=== PATIENT | female | born 1990 | race Caucasian/White ===

== ENCOUNTER 2016-04-03 14:32 | Day surgery (SDC) | payer BC ==
[~2016-04-03] VITALS: Ht 167.6 cm; Wt 57.8 kg
[~2016-04-03 14:32] MED LIST: ADDERALL5 MG PO; ADVIL200 MG PO; BUSPAR10 MG PO; CEFTIN 250250 MG/TAB PO; NORCO 325 MG-51 TAB PO; PRENATAL1 TA1 PO; PRENATAL1 TA2 PO; TETRACYCLI500 MG/CAP; TETRACYCLINE 2250 MG PO; XANAX .25M0.25 MG/TA PO; ZOFRAN4 MG PO
[2016-04-03 15:14] VITALS: BP 122/96; PULSE 75; TEMP 97.5
[2016-04-03] MEDS ORDERED: ALKA-SELTZER HE1 TEF PO (15:23)
[2016-04-03] MEDS ORDERED: NUVARING VAG RING VG (15:25)
[2016-04-03] MEDS ORDERED: LEVBID0.375 MG PO (16:28)
[2016-04-03] MEDS ORDERED: IMODIUM 2MG CAPS2 MG PO (16:29)
[2016-04-03 16:35] VITALS: BP 118/83; PULSE 87; TEMP 97.7
[2016-04-03 16:45] VITALS: BP 121/74; PULSE 97
[2016-04-03 17:00] VITALS: BP 119/79; PULSE 86
[2016-04-03 17:15] VITALS: BP 106/72; PULSE 87
[2016-04-03 17:30] VITALS: BP 129/91; PULSE 82
[2016-04-03] MEDS ORDERED: PRILOSEC 20MG20 MG PO (17:58)
== END 2016-04-03 18:00 | disposition home or self-care (01) ==
LOC: SDCO 14:32
DX: Z12.31 Encounter for screening mammogram for malignant neoplasm of breast (principal); K21.9 Gastro-esophageal reflux disease without esophagitis; R11.2 Nausea with vomiting, unspecified; R19.7 Diarrhea, unspecified; R19.5 Other fecal abnormalities; R10.84 Generalized abdominal pain
CPT/HCPCS: J2250; J2405; J3010; J7030

== ENCOUNTER 2016-04-25 23:07 | Emergency (ER) | payer BC ==
[~2016-04-25] VITALS: Ht 167.6 cm; Wt 56.8 kg
[~2016-04-25 23:07] MED LIST changes: +ALKA-SELTZER HE1 TEF PO; +IMODIUM 2MG CAPS2 MG PO; +LEVBID0.375 MG PO; +NUVARING VAG RING VG; +PRILOSEC 20MG20 MG PO
[2016-04-26 00:36] LABS: BASO % 0.4 % (0.0-2.0); EOS % 0.1 % (0-4.0); GRAN # 7.1 (1.4-6.5); GRAN % 78.4 % (42.2-75.2); HEMATOCRIT 40.4 % (37.0-47.0); HEMOGLOBIN 13.7 g/dl (12.5-16.0); LYMPH # 1.4 (1.2-3.4); LYMPH % 15.8 % (20.0-51.0); MEAN CELL VOLUME 87 fl (80.0-100.0); MEAN CORPUSCULAR HEMOGLOBIN 29 pg (27.0-31.0); MEAN CORPUSCULAR HGB CONC 34 g/dl (33.0-37.0); MEAN PLATELET VOLUME 10.8 fl (7.4-10.4); MONO # 0.5 (0.1-0.6); MONO % 5.1 % (1.7-9.3); PLATELET COUNT 260 K/mm3 (130-400); RED BLOOD COUNT 4.66 M/mm3 (4.10-5.30); REDCELL DISTRIBUTION WIDTH-CV 12.1 % (11.5-14.5)
[2016-04-26 00:47] VITALS: TEMP 99.3
[2016-04-26 00:51] LABS: ADJUSTED CALCIUM 9.3 mg/dL (8.4-10.2); ALBUMIN 4.8 gm/dL (3.5-5.0); BILIRUBIN,TOTAL 0.8 mg/dL (0.0-1.0); C-REACTIVE PROTEIN 2.4 mg/dL (0.0-0.9); CALCIUM 9.9 mg/dL (8.4-10.2); CREATININE, serum 0.83 mg/dL (0.52-1.25); POTASSIUM 3.5 mmol/L (3.4-5.0)
[2016-04-26 01:42] LABS: PH 6 (5-8); SQUAMOUS EPITHELIAL 0-2 /hpf; URINE APPEARANCE Hazy; URINE BACTERIA None Seen /hpf; URINE BILIRUBIN Negative (NEGATIVE); URINE BLOOD Negative (NEGATIVE); URINE COLOR Yellow; URINE GLUCOSE Negative (NEGATIVE); URINE KETONE 2+ (NEGATIVE); URINE RBC 0-2 /hpf; URINE UROBILINOGEN Negative (NEGATIVE); URINE WBC 0-2 /hpf
[2016-04-26] MEDS ORDERED: ZOFRAN ODT4 MG PO (02:12)
[2016-04-26] MEDS ORDERED: NORCO 325 MG-51 TAB PO (02:12)
[2016-04-26 02:18] VITALS: BP 109/68; PULSE 61
== END 2016-04-26 02:19 | disposition home or self-care (01) ==
LOC: COL.ER 23:07
PROVIDERS: Nurse Practitioner
DX: R10.32 Left lower quadrant pain (principal); R19.7 Diarrhea, unspecified; R11.0 Nausea
CPT/HCPCS: J1885; J2405; J2550; J7030; Q9967

== ENCOUNTER 2016-09-13 21:17 | Emergency (ER) | payer BC ==
[~2016-09-13] VITALS: Ht 170.2 cm; Wt 59.1 kg
[~2016-09-13 21:17] MED LIST changes: +ZOFRAN ODT4 MG PO
[2016-09-13 21:19] VITALS: TEMP 98
[2016-09-13] MEDS ORDERED: NORCO 325 MG-51 TAB PO (22:44)
[2016-09-13] MEDS ORDERED: ZOFRAN 4MG T4 MG/TAB PO (22:44)
[2016-09-13 23:10] VITALS: BP 147/91; PULSE 71
== END 2016-09-13 23:18 | disposition home or self-care (01) ==
LOC: COL.ER 21:17
DX: S82.145A Nondisplaced bicondylar fracture of left tibia, initial encounter for closed fracture (principal); F17.210 Nicotine dependence, cigarettes, uncomplicated; F12.90 Cannabis use, unspecified, uncomplicated; M19.90 Unspecified osteoarthritis, unspecified site; Z98.890 Other specified postprocedural states; V89.2XXA Person injured in unspecified motor-vehicle accident, traffic, initial encounter; Y92.818 Other transport vehicle as the place of occurrence of the external cause
CPT/HCPCS: J1885; L1830

== ENCOUNTER 2017-03-02 12:51 | Emergency (ER) | payer BC ==
[~2017-03-02] VITALS: Ht 167.6 cm; Wt 58.0 kg
[~2017-03-02 12:51] MED LIST changes: +ZOFRAN 4MG T4 MG/TAB PO
[2017-03-02 12:54] VITALS: BP 121/77; TEMP 98.3
[2017-03-02] MEDS ORDERED: TRI-SPRINTEC 281 TAB PO (12:57)
[2017-03-02 13:53] LABS: COLLECTION METHOD CLEAN CATCH
[2017-03-02 14:06] LABS: MUCOUS Present /lpf; PH 6 (5-8); SQUAMOUS EPITHELIAL 0-2 /hpf; URINE APPEARANCE Clear; URINE BACTERIA Rare /hpf; URINE BILIRUBIN Negative (NEGATIVE); URINE BLOOD Negative (NEGATIVE); URINE COLOR Yellow; URINE GLUCOSE Negative (NEGATIVE); URINE KETONE 1+ (NEGATIVE); URINE LEUKOCYTE ESTERASE Negative (NEGATIVE); URINE PROTEIN(semi-quant) 2+ (NEGATIVE); URINE RBC 0-2 /hpf; URINE UROBILINOGEN Negative (NEGATIVE); URINE WBC 0-2 /hpf
[2017-03-02 14:12] LABS: BASO # 0.1 (0.0-0.2); BASO % 0.6 % (0.0-2.0); EOS # 0.1 (0.0-0.7); EOS % 0.8 % (0-4.0); GRAN # 6.4 (1.4-6.5); GRAN % 66.1 % (42.2-75.2); HEMOGLOBIN 12.3 g/dl (12.5-16.0); LYMPH # 2.6 (1.2-3.4); LYMPH % 26.3 % (20.0-51.0); MEAN CELL VOLUME 85 fl (80.0-100.0); MEAN CORPUSCULAR HEMOGLOBIN 29 pg (27.0-31.0); MEAN CORPUSCULAR HGB CONC 33 g/dl (33.0-37.0); MEAN PLATELET VOLUME 10.2 fl (7.4-10.4); MONO # 0.6 (0.1-0.6); PLATELET COUNT 283 K/mm3 (130-400); RED BLOOD COUNT 4.32 M/mm3 (4.10-5.30); WHITE BLOOD COUNT 9.7 K/mm3 (4.8-10.8)
[2017-03-02 14:15] LABS: HEMATOCRIT 36.9 % (37.0-47.0)
[2017-03-02 14:30] LABS: ADJUSTED CALCIUM 9.1 mg/dL (8.4-10.2); ALANINE AMINOTRANSFERASE 35 U/L (9-52); ALBUMIN 4.7 gm/dL (3.5-5.0); ALKALINE PHOSPHATASE 82 U/L (50-136); ANION GAP 10 mmol/L (7-16); BILIRUBIN,TOTAL 0.7 mg/dL (0.0-1.0); BLOOD UREA NITROGEN 13 mg/dL (7-17); CALCIUM 9.7 mg/dL (8.4-10.2); CARBON DIOXIDE 23 mmol/L (22-30); CHLORIDE 105 mmol/L (98-107); CREATININE, serum 0.66 mg/dL (0.52-1.25); GLUCOSE 82 mg/dL (74-106); LIPASE 84 U/L (23-300); POTASSIUM 3.8 mmol/L (3.4-5.0); SODIUM 139 mmol/L (137-145); TOTAL PROTEIN 8.1 gm/dL (6.4-8.2)
[2017-03-02 14:43] LABS: C-REACTIVE PROTEIN < 0.5 mg/dL (0.0-0.9)
[2017-03-02 17:18] LABS: CHLAMYDIA/TRACH by PCR Female NOT DETECTED; NEISSERIA GON by PCR Female NOT DETECTED
[2017-03-02] MEDS ORDERED: ZOFRAN ODT4 MG PO (17:48)
[2017-03-02] MEDS ORDERED: NORCO 325 MG-51 TAB PO (17:48)
[2017-03-02 18:01] VITALS: PULSE 78
== END 2017-03-02 18:00 | disposition home or self-care (01) ==
LOC: COL.ER 12:51
PROVIDERS: Emergency Medicine
DX: R10.2 Pelvic and perineal pain (principal)
CPT/HCPCS: J1885; J7030

== ENCOUNTER → 2017-05-01 | Outpatient (REF) ==
[~2017-05-01] MED LIST changes: +IBU600 MG PO; +PERCOCET 325 MG1 TA2 PO; +TRI-SPRINTEC 281 TAB PO
[2017-05-01 10:41] LABS: BASO % 0.1 % (0.0-2.0); LYMPH # 2.7 (1.2-3.4); LYMPH % 12.8 % (20.0-51.0); MEAN CELL VOLUME 87 fl (80.0-100.0); MEAN CORPUSCULAR HGB CONC 33 g/dl (33.0-37.0); MEAN PLATELET VOLUME 10.3 fl (7.4-10.4); MONO # 1.4 (0.1-0.6); MONO % 6.6 % (1.7-9.3); PLATELET COUNT 281 K/mm3 (130-400); RED BLOOD COUNT 3.89 M/mm3 (4.10-5.30); REDCELL DISTRIBUTION WIDTH-CV 14.8 % (11.5-14.5)
[2017-05-01 10:49] LABS: ALANINE AMINOTRANSFERASE 24 U/L (9-52); ALBUMIN 4.1 gm/dL (3.5-5.0); ALKALINE PHOSPHATASE 55 U/L (50-136); ANION GAP 10 mmol/L (7-16); AST,SGOT 19 U/L (15-37); BILIRUBIN,TOTAL 0.4 mg/dL (0.0-1.0); BLOOD UREA NITROGEN 10 mg/dL (7-17); CALCIUM 9.4 mg/dL (8.4-10.2); CARBON DIOXIDE 24 mmol/L (22-30); CHLORIDE 107 mmol/L (98-107); CREATININE, serum 0.73 mg/dL (0.52-1.25); GLUCOSE 111 mg/dL (74-106); POTASSIUM 3.5 mmol/L (3.4-5.0); SODIUM 141 mmol/L (137-145); TOTAL PROTEIN 7.2 gm/dL (6.4-8.2)
[2017-05-01 11:04] LABS: HEMATOCRIT 33.8 % (37.0-47.0); HEMOGLOBIN 11.2 g/dl (12.5-16.0); MEAN CORPUSCULAR HEMOGLOBIN 29 pg (27.0-31.0); TROPONIN-I < 0.012 ng/mL (0.000-0.034)
== END ==
LOC: ZMSC 10:30
PROVIDERS: Obstetrics & Gynecology
DX: Z01.89 Encounter for other specified special examinations (principal)

== ENCOUNTER 2017-05-04 16:32 | Emergency (ER) | payer BC ==
[~2017-05-04] VITALS: Ht 167.6 cm; Wt 55.9 kg
[~2017-05-04 16:32] MED LIST changes: -IBU600 MG PO; -PERCOCET 325 MG1 TA2 PO
[2017-05-04 16:36] VITALS: TEMP 97.5
[2017-05-04] MEDS ORDERED: IBU600 MG PO (16:39)
[2017-05-04] MEDS ORDERED: PERCOCET 325 MG1 TA2 PO ×2 (16:39→19:33)
[2017-05-04] MEDS ORDERED: ZOFRAN 4MG T4 MG/TAB PO (19:33)
[2017-05-04 19:40] VITALS: BP 122/81; PULSE 80
== END 2017-05-04 19:45 | disposition home or self-care (01) ==
LOC: COL.ER 16:32
DX: K59.00 Constipation, unspecified (principal); R10.84 Generalized abdominal pain; R07.89 Other chest pain; R06.00 Dyspnea, unspecified; R06.02 Shortness of breath; R11.2 Nausea with vomiting, unspecified; Z90.710 Acquired absence of both cervix and uterus; Z98.890 Other specified postprocedural states
CPT/HCPCS: J1885; J2270; J2405; J7030; Q9967

== ENCOUNTER 2017-05-05 14:11 | Observation (INO) | payer BC ==
[~2017-05-05] VITALS: Ht 167.6 cm; Wt 55.9 kg
[2017-05-05] VITALS (7 sets, daily range): BP systolic 116–128; BP diastolic 61–88; PULSE 76–99; TEMP 97.7
[~2017-05-05 14:11] MED LIST changes: +IBU600 MG PO; +PERCOCET 325 MG1 TA2 PO
[2017-05-05 15:47] LABS: BASO # 0.1 (0.0-0.2); BASO % 0.3 % (0.0-2.0); EOS # 0.1 (0.0-0.7); EOS % 0.4 % (0-4.0); GRAN # 15.1 (1.4-6.5); GRAN % 80.9 % (42.2-75.2); HEMOGLOBIN 12.4 g/dl (12.5-16.0); LYMPH % 10.8 % (20.0-51.0); MEAN CELL VOLUME 86 fl (80.0-100.0); MEAN CORPUSCULAR HEMOGLOBIN 29 pg (27.0-31.0); MEAN CORPUSCULAR HGB CONC 34 g/dl (33.0-37.0); MEAN PLATELET VOLUME 10.2 fl (7.4-10.4); MONO # 1.4 (0.1-0.6); MONO % 7.2 % (1.7-9.3); PLATELET COUNT 256 K/mm3 (130-400); RED BLOOD COUNT 4.27 M/mm3 (4.10-5.30); REDCELL DISTRIBUTION WIDTH-CV 14.5 % (11.5-14.5)
[2017-05-05 15:51] LABS: HEMATOCRIT 36.5 % (37.0-47.0)
[2017-05-05 16:00] LABS: ALBUMIN 5.1 gm/dL (3.5-5.0); BILIRUBIN,TOTAL 0.8 mg/dL (0.0-1.0); C-REACTIVE PROTEIN 4.8 mg/dL (0.0-0.9); CALCIUM 9.7 mg/dL (8.4-10.2); CREATININE, serum 0.67 mg/dL (0.52-1.25); MAGNESIUM 1.9 mg/dL (1.6-2.3); POTASSIUM 3.7 mmol/L (3.4-5.0); TOTAL PROTEIN 8.5 gm/dL (6.4-8.2)
[2017-05-05 16:26] LABS: COLLECTION METHOD CLEAN CATCH
[2017-05-05 16:41] LABS: SQUAMOUS EPITHELIAL None Seen /hpf; URINE BACTERIA None Seen /hpf; URINE RBC 0-2 /hpf
[2017-05-05 16:44] LABS: URINE APPEARANCE Clear; URINE COLOR Yellow
[2017-05-05 16:50] LABS: PH 8 (5-8); URINE BILIRUBIN Negative (NEGATIVE); URINE BLOOD Negative (NEGATIVE); URINE GLUCOSE Negative (NEGATIVE); URINE LEUKOCYTE ESTERASE Negative (NEGATIVE); URINE NITRATE Negative (NEGATIVE); URINE PROTEIN(semi-quant) Negative (NEGATIVE); URINE UROBILINOGEN Negative (NEGATIVE)
[2017-05-05 16:51] LABS: URINE KETONE 1+ (NEGATIVE)
[2017-05-06 01:30] VITALS: BP 117/67; PULSE 78
[2017-05-06 03:19] VITALS: BP 116/61; PULSE 94; TEMP 98.1
[2017-05-06 05:18] VITALS: BP 114/59; PULSE 67
[2017-05-06 07:30] VITALS: BP 97/54; PULSE 70; PULSE 78; TEMP 97.8
[2017-05-06 09:27] LABS: MEAN CELL VOLUME 87 fl (80.0-100.0); MEAN CORPUSCULAR HGB CONC 34 g/dl (33.0-37.0); MEAN PLATELET VOLUME 10.2 fl (7.4-10.4); PLATELET COUNT 214 K/mm3 (130-400); RED BLOOD COUNT 3.72 M/mm3 (4.10-5.30); REDCELL DISTRIBUTION WIDTH-CV 14.6 % (11.5-14.5)
[2017-05-06 09:28] LABS: HEMATOCRIT 32.2 % (37.0-47.0); HEMOGLOBIN 10.8 g/dl (12.5-16.0); MEAN CORPUSCULAR HEMOGLOBIN 29 pg (27.0-31.0)
[2017-05-06 11:25] VITALS: BP 108/66; PULSE 78; TEMP 98.1
[2017-05-06] MEDS ORDERED: NORCO 325 MG-51 TAB PO (12:18)
[2017-05-06 12:25] VITALS: BP 110/68; PULSE 70; TEMP 98.1
== END 2017-05-06 12:50 | disposition home or self-care (01) ==
LOC: COL.ER 14:11 → OB 16:38
PROVIDERS: Emergency Medicine; Obstetrics & Gynecology
DX: G89.18 Other acute postprocedural pain (principal); R10.30 Lower abdominal pain, unspecified; K59.00 Constipation, unspecified; D72.829 Elevated white blood cell count, unspecified; R79.82 Elevated C-reactive protein (CRP); Z88.2 Allergy status to sulfonamides
CPT/HCPCS: G0378; J1170; J1885; J2060; J2405; J2550; J7030; J7070

== ENCOUNTER → 2017-07-20 | Outpatient (CLI) | payer BC | LOC: COL.RAD 11:00 | DX: E04.9 Nontoxic goiter, unspecified (principal) ==

== ENCOUNTER → 2017-11-10 | Outpatient (CLI) | payer BC | LOC: COL.RAD 11-02 15:20 | DX: E05.90 Thyrotoxicosis, unspecified without thyrotoxic crisis or storm (principal) | CPT/HCPCS: A9516 ==